=== PATIENT | male | born 1980 | race Caucasian/White ===

== ENCOUNTER 2020-01-28 21:05 | Inpatient (IN) | payer BC ==
[~2020-01-28] VITALS: Ht 175.3 cm; Wt 84.1 kg
[2020-01-28 21:12] VITALS: BP 117/86
[2020-01-28 22:11] LABS: HEMATOCRIT 44.9 % (42.0-52.0); MEAN CELL VOLUME 89.6 fl (80.0-94.0); MEAN CORPUSCULAR HGB 30.1 pg (27.0-31.0); MEAN CORPUSCULAR HGB CONC 33.6 g/dl (33.0-37.0); MEAN PLATELET VOLUME 8.9 fl (9.6-12.3); PLATELET COUNT AUTOMATED 183 10*3/uL (130-400); RED BLOOD COUNT 5.01 10*6/uL (4.50-5.90); RED CELL DISTRI WIDTH 12.2 % (0-14.5); WHITE BLOOD COUNT 7.5 10*3/uL (4.8-10.8)
[2020-01-28 22:29] LABS: ALBUMIN 3.8 gm/dl (3.1-4.5); ALKALINE PHOSPHATASE 72 U/L (45-117); BUN 13 mg/dl (7-24); CHLORIDE 107 mmol/L (98-107); CREATININE 1.05 mg/dL (0.70-1.30); PLATELET SUFFICIENCY NORMAL (NORMAL); POTASSIUM 3.7 mmol/L (3.5-5.1); SGOT/AST 49 IU/L (3-35); SGPT/ALT 61 U/L (12-78); SODIUM 136 mmol/L (136-145); TOTAL CELLS COUNTED 100 #CELLS; TOTAL PROTEIN 8.3 gm/dL (6.4-8.2)
[2020-01-29 00:45] VITALS: BP 118/70
[2020-01-29 01:20] VITALS: BP 140/78
--- NOTE | 2020-01-29 01:20 | NUR ---
Time: 119 A 39 year old MALE admitted to 5E under services of SHAQUILLE KHALLI DO. Pt. arrived via bed from ER. Chief complaint: CELLULITIS OF LEFT ANKLE, DEHYDRATION. ALICIA BHANDARI
--- NOTE | 2020-01-29 01:30 | NUR ---
PT DENIES ANY PAIN. STATES IT FEELS A LOT BETTER ACTUALLY
--- NOTE | 2020-01-29 01:39 | NUR ---
PATIENT STATES THAT HE FEELS BETTER AND NOT DIZZY AFTER BAG OF FLUIDS
--- NOTE | 2020-01-29 02:07 | NUR ---
MEG CASTELLON [id number] Please refer to the physician's history and physical for past medical history, comorbid conditions, and allergies. Diagnosis: CELLULITIS OF LEFT ANKLE, DEHYDRATION Lavell Score: 22,LOW OR NO RISK WOUND DESCRIPTIONS: Wound Number: 1 Location of the wound: left ankle Type of wound: cellulitis Thickness: Partial Size: 17.0cm x 16.5cm x <0.1cm Tunneling: none Undermining: none Sinus Tract: none Presence of Exudate: none Amount: None Color: dark red, yellow pustules noted within wound Odor: None Periwound Skin Appearance: Warm Wound edges: closed Pain (associated with wound): tender at time of assessment How does patient state this happened? pt states this started on wednesday morning and by the end of the day it started to blister patient stated this is unsure how it happened Surface the patient is resting on: Isoflex SKIN PREVENTION RECOMMENDATION: 1. Pressure redistribution support surface as appropriate 2. Elevate heels 3. Remove boots/TEDS every shift and reapply 4. Head of bed 30 degrees as tolerated 5. Assess nutrition and hydration 6. Manage moisture 7. Avoid the use of containment devices while in bed 8. Use absorptive products on surfaces limit layers of linens on bed 9. Turn and reposition every 1-2 hours in bed and every 1 hour in chair as tolerated 10. Weight shifts every 15 minutes while up in chair 11. Offloading with pillows or device to keep heels elevated off bed 12. Monitor skin at least every shift 13. Inspect under medical devices twice a day WOUND TREATMENT RECOMMENDATIONS: Consult podiatry for area to left ankle. Patient states if needs follow up upon discharge will follow with podiatry upon discharge if he can't manage at home.
--- NOTE | 2020-01-29 02:46 | NUR ---
PATIENT CONTINUES TO HAVE NO COMPLAINTS
--- NOTE | 2020-01-29 06:38 | NUR ---
NOTIFIED DR. ARAUJO OF [facility]
[2020-01-29 07:01] LABS: BASO % 0.3 % (0.0-1.0); EOS % 0.1 % (1.0-4.0); HEMATOCRIT 44.8 % (42.0-52.0); LYMPH # 0.4 10*3/uL (1.3-4.4); LYMPH % 4.7 % (27.0-41.0); MEAN CELL VOLUME 87.7 fl (80.0-94.0); MEAN CORPUSCULAR HGB 29.9 pg (27.0-31.0); MEAN CORPUSCULAR HGB CONC 34.2 g/dl (33.0-37.0); MONO # 0.6 10*3/uL (0.1-1.0); MONO % 7.4 % (3.0-9.0); NEUT # 6.5 10*3/uL (2.3-7.9); NEUT % 87.1 % (47.0-73.0); PLATELET COUNT AUTOMATED 173 10*3/uL (130-400); RED BLOOD COUNT 5.11 10*6/uL (4.50-5.90); RED CELL DISTRI WIDTH 12.2 % (0-14.5); WHITE BLOOD COUNT 7.5 10*3/uL (4.8-10.8)
[2020-01-29 07:15] LABS: ALBUMIN 3.4 gm/dl (3.1-4.5); BUN 10 mg/dl (7-24); CHLORIDE 108 mmol/L (98-107); CREATININE 0.98 mg/dL (0.70-1.30); POTASSIUM 3.8 mmol/L (3.5-5.1); SGOT/AST 69 IU/L (3-35); SGPT/ALT 88 U/L (12-78); SODIUM 138 mmol/L (136-145)
[2020-01-29 07:24] LABS: ALKALINE PHOSPHATASE 70 U/L (45-117); TOTAL PROTEIN 7.4 gm/dL (6.4-8.2)
[2020-01-29 08:00] VITALS: BP 136/75
--- NOTE | 2020-01-29 08:52 | NUR ---
Dr. Aiken notified of wound care recommmendations.
--- NOTE | 2020-01-29 10:10 | NUR ---
PT GIVEN TYLENOL FOR HEADACHE. REFUSE LOVENOX, EXPLAINED MEDICATION AND IMPORTANCE. PT UNDERSTANDS RISKS TO REFUSING, DISCUSS WITH PATIENT ANKLE CIRCLES AND CALF PUMPING WELL AMBULATION PRN. PT UNDERSTANDS. AT THIS TIME PT STATES NO OTHER NEEDS
[2020-01-29 12:00] VITALS: BP 102/54
[2020-01-29 16:00] VITALS: BP 123/68
--- NOTE | 2020-01-29 18:21 | NUR ---
TYLENOL GIVEN FOR HEADACHE
[2020-01-29 20:00] VITALS: BP 113/64
--- NOTE | 2020-01-29 20:00 | NUR ---
RESTING IN BED. IV ANTIBX INFUSING INTO IV IN LEFT HAND; SITE ASYMPTOMATIC. LEFT ANKLE RED/SWOLLEN & SEVERAL PUSTULES NOTED. PT. DENIES PAIN/DISCOMFORT AT THIS TIME. CALL LIGHT WITHIN REACH. INSTRUCTED TO USE CALL LIGHT WHEN ANTIBIOTIC IS DONE; PT. VERBALIZED UNDERSTANDING.
--- NOTE | 2020-01-29 21:50 | NUR ---
RESTING IN BED WATCHING T.V. VOICES NO C/O AT THIS TIME. CALL LIGHT WITHIN REACH.
--- NOTE | 2020-01-29 23:00 | NUR ---
ASSUMED CARE FOR THIS PT AT THIS TIME. PT RESTING QUIETLY IN BED WATCHIG TV. LT ANKLE REMAINS RED/WARM/SWOLLEN BUT PT STATES IT HAS IMPROVED. DENIES PAIN. CALL LIGHT IN REACH.
[2020-01-30] VITALS: BP 139/66
[2020-01-30 08:00] VITALS: BP 107/66
--- NOTE | 2020-01-30 11:44 | NUR ---
PT DENEIS ANY PAIN TO LLE, DIZZINESS OR HEADACHE AT THIS TIME. WILL CONTINUE TO MONITOR.
[2020-01-30 12:00] VITALS: BP 117/61
--- NOTE | 2020-01-30 12:03 | NUR ---
[employer] Worker in to talk to patient. Patient states lives at HOME with ALONE. There are SEVERAL steps in the home. Physician: LINSEY Pharmacy: [facility] Home health services: NONE Patient's level of ADLs: INDEPENDENT Patient has working utilities: YES DME: NONE Follow-up physician's appointment after d/c: WILL BE MADE BY HOSPITALIST NURSE DIRECTOR ON DISCHARGE Does patient want to access PORTAL?: NO Discharge plan PT LIVES AT HOME ALONE AND IS INDEPENDENT IN HIS CARE. DENIES HE WILL HAVE NEEDS ON DISCHARGE. PLAN IS TO REUTN HOME WHEN MEDICALLY STABLE. WILL CONTINUE TO FOLLOW. STATES HE WILL HAVE A RIDE HOME.. WINSTON BROWN
[2020-01-30] MEDS ORDERED: SEPTDS PO (12:13)
[2020-01-30] MEDS ORDERED: KEFLEX500 M1 PO (12:13)
--- NOTE | 2020-01-30 13:39 | NUR ---
PT DISCHARGED HOME AT THIS TIME. PT REFUSED WHEELCHAIR AND AMBULATED OFF THE FLOOR TO PRIVATE CAR. [place] REMOVED. PRESCRIPTIONS AND FOLLOW UP CARE DISCUSSED.
== END 2020-01-30 13:35 | disposition home or self-care (01) | DRG 603 ==
LOC: ED 21:05 → 5E 01-29 00:28 → EDHOLD 01-29 00:28 → 5E 01-29 01:04
PROVIDERS: Emergency Medicine; Student in an Organized Health Care Education/Training Program; ADMIT Emergency Medicine
DX: L03.116 Cellulitis of left lower limb (principal); E86.0 Dehydration; E11.65 Type 2 diabetes mellitus with hyperglycemia; E83.39 Other disorders of phosphorus metabolism; R79.89 Other specified abnormal findings of blood chemistry; Z82.49 Family history of ischemic heart disease and other diseases of the circulatory system; Z82.0 Family history of epilepsy and other diseases of the nervous system